=== PATIENT | male | born 1950 | race Caucasian/White ===

== ENCOUNTER 2016-12-17 04:30 | Emergency (ER) | payer BC ==
[~2016-12-17] VITALS: Ht 177.8 cm; Wt 77.4 kg
[~2016-12-17 04:30] MED LIST: ALPH100T PO; ASPI81TA21 PO; CARV12.5 PO; CO Q-10 PO; CRG25 PO; CRS5 PO; CYAN10005 PO; FISHOIL PO; FOLI1TAB7 PO; LEVO25TA5 PO; LEVO50TA6 PO; MELO7.5T5 PO; NZRCR TOP; ROPI0.5T15 PO; SULFACETAMIDE EXT; SULFUR EXT; ZOLP10TA6 PO
[2016-12-17 04:33] VITALS: TEMP 36.9; Ht 177.8 cm; Wt 77.4 kg
[2016-12-17] MEDS ORDERED: ONDANSETRON INJ 2 MG/ML 2 ML VIAL IV STA (04:51)
[2016-12-17] MEDS ORDERED: SODIUM CHLORIDE 0.9% 1000ML 1,000 ML IV STA (04:51)
[2016-12-17] MEDS ORDERED: HYDROmorphone INJ 1 MG/ML SYR IV STA ×2 (04:51→06:07)
--- NOTE | 2016-12-17 04:59 | EMERGENCY ROOM VISIT NOTE ---
History Report prepared by Peña: Richa Pimentel Under the Supervision of: Dr. Jamal Monreal M.D. First contact with patient: 04:45 Chief Complaint: BACK PAIN Stated Complaint: PAIN IN LOWER BACK AND STOMACH History of Present Illness The patient is a 66 year old male who presents to the Emergency Room with complaints of waxing and waning lower left back pain starting earlier today CATERING SOUS CHEF. The patient currently rates the pain as a 7/10 in severity. The patient states that he was traveling this weekend and when arriving home he had some vague abdominal pain and then radiated into his lower left to middle back. The patient describes the pain as a throbbing. He states that he has no history of kidney stones nor did he notice any blood in his urine. The patient states that this back pain is different than his back pain he had with his herniated discs. The patient states he is having some nausea but denies any vomiting, swelling or pain in the legs, SOB, or chest pain. Source of History: patient Onset: earlier today CATERING SOUS CHEF Position: back (lower left) Symptom Intensity: 7/10 Quality: other (throbbing) Timing: waxes/wanes Associated Symptoms: + nausea, No SOB, No chest pain, No vomiting Note: Patient denies any swelling or pain in the legs. Review of Systems See HPI for pertinent positives & negatives. A total of 10 systems reviewed and were otherwise negative. Past Medical & Surgical Medical Problems: (1) Anemia (2) HTN (hypertension) (3) Hypercholesterolemia (4) Hypothyroidism (5) Osteoarthritis (6) Pancytopenia Surgical Problems: (1) History of tonsillectomy and adenoidectomy (2) Status post Mohs surgery Family History No significant family history secondary to age Social History Smoking Status: Never Smoker Marital Status: Housing Status: lives with significant other Occupation Status: employed Current/Historical Medications Scheduled Alpha-Lipoic Acid (Thioctic Ac (Alpha-Lipoic Acid), 150 MG PO DAILY Aspirin Enteric Coated (Ecotrin Or Generic), 81 MG PO DAILY Carvedilol (Carvedilol), 25 MG PO QAM Carvedilol (Coreg), 12.5 MG PO QPM Coenzyme Q10 (Ubidecarenone) (Co Q-10), 1 CAP PO DAILY Cyanocobalamin (Vitamin B-12), 1,000 MCG PO DAILY Fish Oil (Hubbell-3), 1 CAP PO DAILY Folic Acid (Folvite), 1 TAB PO DAILY Ketoconazole (Ketoconazole), 1 APPLN TOP DAILY Levothyroxine Sodium (Levothyroxine Sodium), 1 TAB PO Q2D Levothyroxine Sodium (Levothyroxine Sodium), 1 TAB PO Q2D Meloxicam (Mobic), 7.5 MG PO DAILY Ondasetron Odt (Zofran Odt), 4-8 MG SL Q6H Ropinirole (Requip), 0.5 MG PO DAILY Rosuvastatin Calcium (Crestor), 1 TAB PO DAILY Sulfacetamide Sodium W/ Sulfur (Plexion Cleanser 9.8-4.8 %), 1 APPLN TOP DAILY Tamsulosin Hcl (Flomax), 0.4 MG PO DAILY Scheduled PRN Oxycodone Immediate Rel Tab (Roxicodone Ir), 1-3 TAB PO Q4H PRN for Severe Pain Zolpidem Tartrate (Zolpidem Tartrate), 1 TAB PO HS PRN for Insomnia Allergies Coded Allergies: No Known Allergies (Unverified , 12/17/16) Physical Exam Vital Signs Date Time Temp Pulse Resp B/P Pulse Ox O2 Delivery O2 Flow Rate FiO2 12/17/16 06:49 68 16 136/91 95 Room Air 12/17/16 06:05 66 20 149/95 97 Room Air 12/17/16 04:33 36.9 84 18 188/104 98 Room Air Physical Exam GENERAL: Patient is moderate distress, uncomfortable appearing. HEENT: No acute trauma, normocephalic atraumatic, mucous membranes moist, no nasal congestion, no scleral icterus. NECK: No stridor, no adenopathy, no meningismus, trachea is midline. LUNGS: No dyspnea. Clear to auscultation and equal bilaterally. No wheeze, no rhonchi. HEART: Regular rate and rhythm. No murmurs, rubs, gallops appreciated. ABDOMEN: Soft, nontender, bowel sounds positive, no masses appreciated, no peritonitis. BACK: No midline tenderness, no CVA tenderness EXTREMITIES: Normal motion all extremities, no cyanosis, no edema. NEUROLOGIC: Alert and oriented, no acute motor or sensory deficits, no focal weakness, cranial nerves grossly intact. SKIN: No rash, no jaundice, no diaphoresis. Medical Decision & Procedures ER Provider Diagnostic Interpretation: CT results as stated below per interpretation by me and the radiologist: Preliminary Results Only--- See Final Report for Complete Findings: CT ABDOMEN & PELVIS: Impression; 3 mm calculus within the proximal left ureter causing mild hydroureteronephrosis. There are additional non-obstructing calculi within the left kidney. Additional Findings: The visualized lower thorax demonstrates a small hiatal hernia. Subcentimeter low-density lesion within the right hepatic lobe (2-46), which is too small to characterize. The gallbladder, spleen, pancreas, and adrenal glads are unremarkable. Noninflamed colonic diverticulosis. The appendix is within normal limits. High-density material in the distal spermatic cords which may be postsurgical. No acute osseous abnormality. Radiologist: Angelo Shahid M.D. Study ready at 0530 and initial results transmitted at 0540 Laboratory Results 12/17/16 05:00 Red Blood Count 4.19, Mean Corpuscular Volume 93.1, Mean Corpuscular Hemoglobin 34.6, Mean Corpuscular Hemoglobin Concent 37.2, Mean Platelet Volume 9.0, Neutrophils (%) (Auto) 71.3, Lymphocytes (%) (Auto) 11.7, Monocytes (%) (Auto) 12.2, Eosinophils (%) (Auto) 3.9, Basophils (%) (Auto) 0.4, Neutrophils # (Auto ) 5.85, Lymphocytes # (Auto) 0.96, Monocytes # (Auto) 1.00, Eosinophils # (Auto ) 0.32, Basophils # (Auto) 0.03 12/17/16 05:00 Test 12/17/16 04:10 12/17/16 05:00 Urine Color YELLOW Urine Appearance CLEAR (CLEAR) Urine pH 7.5 (4.5-7.5) Urine Specific [place] 1.012 (1.000-1.030) Urine Protein NEG (NEG) Urine Glucose (UA) NEG (NEG) Urine Ketones NEG (NEG) Urine Occult Blood NEG (NEG) Urine Nitrite NEG (NEG) Urine Bilirubin NEG (NEG) Urine Urobilinogen NEG (NEG) Urine Leukocyte Esterase NEG (NEG) Urine WBC (Auto) 1-5 /hpf (0-5) Urine RBC (Auto) 0-4 /hpf (0-4) Urine Hyaline Casts (Auto) 0 /lpf (0-5) Urine Epithelial Cells (Auto) 5-10 /lpf (0-5) Urine Bacteria (Auto) NEG (NEG) White Blood Count 8.20 K/uL (4.8-10.8) Red Blood Count 4.19 M/uL (4.7-6.1) Hemoglobin 14.5 g/dL (14.0-18.0) Hematocrit 39.0 % (42-52) Mean Corpuscular Volume 93.1 fL (80-100) Mean Corpuscular Hemoglobin 34.6 pg (25-34) Mean Corpuscular Hemoglobin Concent 37.2 g/dl (32-36) Platelet Count 203 K/uL (130-400) Mean Platelet Volume 9.0 fL (7.4-10.4) Neutrophils (%) (Auto) 71.3 % Lymphocytes (%) (Auto) 11.7 % Monocytes (%) (Auto) 12.2 % Eosinophils (%) (Auto) 3.9 % Basophils (%) (Auto) 0.4 % Neutrophils # (Auto) 5.85 K/uL (1.4-6.5) Lymphocytes # (Auto) 0.96 K/uL (1.2-3.4) Monocytes # (Auto) 1.00 K/uL (0.11-0.59) Eosinophils # (Auto) 0.32 K/uL (0-0.5) Basophils # (Auto) 0.03 K/uL (0-0.2) RDW Standard Deviation 40.4 fL (36.4-46.3) RDW Coefficient of Variation 12.0 % (11.5-14.5) Immature Granulocyte % (Auto) 0.5 % Immature Granulocyte # (Auto) 0.04 K/uL (0.00-0.02) Anion Gap 6.0 mmol/L (3-11) Est Creatinine Clear Calc Drug Dose 80.7 ml/min Estimated GFR () 98.8 Estimated GFR (Non- 85.2 BUN/Creatinine Ratio 20.8 (10-20) Calcium Level 8.4 mg/dl (8.5-10.1) Total Bilirubin 0.5 mg/dl (0.2-1) Direct Bilirubin 0.1 mg/dl (0-0.2) Aspartate Amino Transf (AST/SGOT) 22 U/L (15-37) Alanine Aminotransferase (ALT/SGPT) 32 U/L (12-78) Alkaline Phosphatase 77 U/L (45-117) Total Protein 6.8 gm/dl (6.4-8.2) Albumin 3.8 gm/dl (3.4-5.0) Lipase 155 U/L (73-393) Laboratory results as reviewed by me. Medications Administered Medications (Trade) Dose Ordered Sig/Sarah Route Start Time Stop Time Status Last Admin Dose Admin Sodium Chloride (Nss 1000ml) 1,000 ml @ 999 mls/hr Q1H1M STAT IV 12/17/16 04:51 12/17/16 05:51 DC 12/17/16 05:08 999 MLS/HR Hydromorphone HCl (Dilaudid Inj) 1 mg NOW STAT IV 12/17/16 04:51 12/17/16 04:53 DC 12/17/16 05:08 1 MG Ondansetron HCl (Zofran Inj) 4 mg NOW STAT IV 12/17/16 04:51 12/17/16 04:53 DC 12/17/16 05:07 4 MG Tamsulosin HCl (Flomax Cap) 0.4 mg NOW ONCE PO 12/17/16 06:15 12/17/16 06:16 DC 12/17/16 06:11 0.4 MG Hydromorphone HCl (Dilaudid Inj) 1 mg NOW STAT IV 12/17/16 06:07 12/17/16 06:08 DC 12/17/16 06:11 1 MG Ondansetron HCl (ZOFRAN ODT 4MG Home Pack) 1 homepack UD ONCE PO 12/17/16 07:00 12/17/16 07:01 DC 12/17/16 06:54 1 HOMEPACK Oxycodone HCl (Roxicodone Immediate Rel 5MG Home Pack) 1 homepack UD ONCE PO 12/17/16 07:00 12/17/16 07:01 DC 12/17/16 06:54 1 HOMEPACK ED Course 0446: The patient was evaluated in room A2. A complete history and physical exam was performed. 0451: Ordered Zofran Inj 4 mg IV, Dilaudid Inj 1 mg IV, Sodium Chloride 1,000 ml @ 999 mls/hr. 0605: The patient states that he is having increased flank pain currently. 0607: Ordered Dilaudid Inj 1 mg IV. 0615: Ordered Flomax Cap 0.4mg PO. 0651: I reevaluated the patient and he is feeling much better and would like to go home. I discussed results and discharge instructions: He verbalized understanding and agreement. The patient is ready for discharge. Medical Decision Differential: Renal Colic, Pyelonephritis, Hydronephrosis, Appendicitis, Diverticulitis, Retroperitoneal Bleed/Infection, Aortic Pathology, MSK, Neurologic Pathology, amongst other pathologies entertained. 66 yr old male with left flank pain sudden onset this evening. Story concerning for renal colic. No blood in urine but felt that CT necessary given stone vs multiple other serious issues though it could be. Labs look good. CT with 3 mm proximal stone. Pain controlled with periodic narcotics and he is comfortable with outpatient treatment. will be with him. No fevers, nor infectious findings. No shob nor PE findings. Stable findings. Flomax, oxy, zofran discussed with patient and . RTED if worsening or other concerns. Follow up with PCP for further management. [place] Drug Monitoring Program Drug Monitoring Findings: Single controlled prescription several months ago. Impression Primary Impression: Left ureteral calculus Scribe Attestation The scribe's documentation has been prepared under my direction and personally reviewed by me in its entirety. I confirm that the note above accurately reflects all work, treatment, procedures, and medical decision making performed by me. Departure Information Dispostion Home / Self-Care Prescriptions Ondasetron Odt (ZOFRAN ODT) 4 Mg Tab 4-8 MG SL Q6H for Nausea, #20 TAB Prov: Jamal Monreal M.D. 12/17/16 Tamsulosin Hcl (FLOMAX) 0.4 Mg Cap 0.4 MG PO DAILY, #5 CAP Prov: Jamal Monreal M.D. 12/17/16 Oxycodone Immediate Rel Tab (ROXICODONE IR) 5 Mg Tab 1-3 TAB PO Q4H Y for Severe Pain, #24 TAB Prov: Jamal Monreal M.D. 12/17/16 Referrals Maycol Barroso M.D. (PCP) Forms HOME CARE DOCUMENTATION FORM, IMPORTANT VISIT INFORMATION Patient Instructions ED Stone Renal W Colic, My [facility] Additional Instructions You have received a narcotic pain medication prescription. These medications may cause drowsiness and should not be used with other sedative medications. Do not drive, drink alcohol, perform dangerous activities, nor make important decisions after taking these medications. skilled nursing use or inappropriate use may lead to addiction. Please follow up with your primary care provider in the next few days for repeat evaluation. Return if pain out of control or does not resolve after next 2-3 days.
[2016-12-17] MEDS ORDERED: OMEG10007 PO (05:13)
[2016-12-17] MEDS ORDERED: MELO15TA4 PO (05:14)
[2016-12-17] MEDS ORDERED: COEN150C PO (05:15)
[2016-12-17] MEDS ORDERED: NZRCR TOP (05:16)
[2016-12-17 05:18] LABS: BASO % 0.4 %; BASO ABS # 0.03 K/uL (0-0.2); COMPLETE YES; EOS % 3.9 %; IG% 0.5 %; LYMPH % 11.7 %; LYMPH ABS # 0.96 K/uL (1.2-3.4); MEAN CELL VOLUME 93.1 fL (80-100); MEAN CORPUSCULAR HEMOGLOBIN 34.6 pg (25-34); MEAN CORPUSCULAR HGB CONC 37.2 g/dl (32-36); MONO % 12.2 %; NEUT % 71.3 %; PLATELET COUNT 203 K/uL (130-400); RED BLOOD COUNT 4.19 M/uL (4.7-6.1)
[2016-12-17 05:20] LABS: URINE APPEARANCE CLEAR (CLEAR); URINE BILIRUBIN NEG (NEG); URINE COLOR YELLOW; URINE NITRITE NEG (NEG); URINE PH 7.5 (4.5-7.5); URINE SPECIFIC GRAVITY 1.012 (1.000-1.030); UROBILINOGEN NEG (NEG); ZZUR CULT IF INDIC CLEAN CATCH NO
[2016-12-17] MEDS ORDERED: SULF47LI TOP (05:21)
[2016-12-17 05:26] LABS: MANUAL MICROSCOPIC REQUIRED? NO; REVIEW REQ? NO
[2016-12-17 05:33] LABS: BUN/CREATININE RATIO 20.8 (10-20); CALCIUM 8.4 mg/dl (8.5-10.1); CREATININE 0.93 mg/dl (0.60-1.40); POTASSIUM 3.6 mmol/L (3.5-5.1)
[2016-12-17] MEDS ORDERED: TAMSULOSIN HCL 0.4 MG CAP PO ONE (06:15)
[2016-12-17 06:49] VITALS: BP 136/91; PULSE 68; O2SAT 95
[2016-12-17] MEDS ORDERED: TAMS0.4C38 PO (06:49)
[2016-12-17] MEDS ORDERED: ONDA4TAB10 SL (06:49)
[2016-12-17] MEDS ORDERED: OXYC1TAB3 PO (06:49)
[2016-12-17] MEDS ORDERED: OXYCODONE IR HOME PACK PO ONE (07:00)
[2016-12-17] MEDS ORDERED: ONDANSETRON HOME PACK 4MG OD TAB PO ONE (07:00)
--- NOTE | 2016-12-17 07:10 | DIAGNOSTIC IMAGING REPORT ---
ABDOMEN AND PELVIS CT WITHOUT CONTRAST CT DOSE: 827.31 mGy.cm HISTORY: Flank pain sudden onset left flank pain TECHNIQUE: Multiaxial CT images of the abdomen and pelvis were performed without the use of intravenous and oral contrast according to the standard department stone protocol. COMPARISON STUDY: None. FINDINGS: Lung bases are clear. Small fixed lateral hernia. Configuration of liver spleen and pancreas are unremarkable. Right kidney is negative for calcification or hydronephrosis. Perinephric infiltrative changes on the left with moderate left hydroureteronephrosis. There is a 4 mm nonobstructing calcification at the mid pole left kidney. There is a 3 mm obstructing calculus mid left ureter. Bowel pattern is nonobstructive. There are findings of chronic sigmoid diverticulosis. IMPRESSION: 1. Obstructing 3 mm calculus mid left ureter. 2. Moderate/significant left hydroureteronephrosis. 3. Left perinephric infiltrative change. 4. Nonobstructing left renal calcification. 5. Small hiatal hernia. 6. Chronic sigmoid diverticulosis. Electronically signed by: Toby Cruz M.D. 12/17/2016 7:09 AM Dictated Date/Time: 12/17/2016 7:06 AM
== END 2016-12-17 06:56 | disposition home or self-care (01) ==
LOC: C.EDB 04:31 → C.EDA 06:56
DX: N20.1 Calculus of ureter (principal); I10 Essential (primary) hypertension; E78.00 Pure hypercholesterolemia, unspecified; E03.9 Hypothyroidism, unspecified; Z79.82 Long term (current) use of aspirin

== ENCOUNTER 2021-06-29 12:51 | Inpatient (IN) ==
[2021-06-29 13:58] LABS: Basophils # (auto) 0.04 K/uL (0-0.2); Basophils % (auto) 0.7 %; Eosinophils # (auto) 0.35 K/uL (0-0.5); Eosinophils % (auto) 5.9 %; Hematocrit (blood only) 40.6 % (42-52); Hemoglobin 13.9 g/dL (14.0-18.0); Immature Granulocytes # (auto) 0.02 K/uL (0.00-0.02); Immature Granulocytes % (auto) 0.3 %; Lymphocytes # (auto) 1.21 K/uL (1.2-3.4); Lymphocytes % (auto) 20.4 %; Mean Corpuscular Hemoglobin 34.4 pg (25-34); Mean Corpuscular Hgb Conc 34.2 g/dL (32-36); Mean Corpuscular Volume 100.5 fL (80-100); Mean Platelet Volume 8.9 fL (7.4-10.4); Monocytes % (auto) 18.5 %; Neutrophils # (auto) 3.21 K/uL (1.4-6.5); Neutrophils % (auto) 54.2 %; Platelet Count 282 K/uL (130-400); RDW Coefficient of Variation 12.3 % (11.5-14.5); RDW Standard Deviation 44.9 fL (36.4-46.3); Red Blood Count 4.04 M/uL (4.7-6.1); White Blood Count 5.93 K/uL (4.8-10.8)
[2021-06-29] MEDS ORDERED: SODIUM CHLORIDE 0.9% 1000ML 1,000 ML IV SCH (14:00)
[2021-06-29 14:05] LABS: Partial Thromboplastin Time 27.4 Seconds (21.0-31.0)
[2021-06-29 14:11] LABS: Alanine Aminotransferase 21 U/L (12-78); Albumin Level 3.3 gm/dl (3.4-5.0); Aspartate Aminotransferase 16 U/L (15-37); BUN Creatinine Ratio 18.8 (10-20); Blood Urea Nitrogen 14 mg/dl (7-18); Calcium 8.7 mg/dl (8.5-10.1); Carbon Dioxide 29 mmol/L (21-32); Chloride 108 mmol/L (98-107); Est GFR (African American) 107.7 ml/min; Est GFR (Non-African American) 92.9 ml/min; Glucose 83 mg/dl (70-99); Magnesium 2.4 mg/dl (1.8-2.4); Potassium 4.4 mmol/L (3.5-5.1); Sodium 141 mmol/L (136-145)
[2021-06-29 14:16] LABS: Albumin Globulin Ratio 0.9 (0.9-2); Alkaline Phosphatase 66 U/L (45-117); Bilirubin,Total 0.6 mg/dl (0.2-1); Globulin 3.8 gm/dl (2.5-4.0); NT Pro B Type Natriuretic Pept 171 pg/ml (0-900); Total Protein 7.1 gm/dl (6.4-8.2); Troponin I < 0.015 ng/ml (0-0.045)
--- NOTE | 2021-06-29 14:25 | Emergency Department Note ---
Impression & Plan Pulmonary embolism and infarction, Cough with hemoptysis, Shortness of breath ED Provider Note NAME: MARIBETH LINDER AGE: 70 SEX: M ARRIVES VIA: Walk-In INFORMANT: Patient, ED PROVIDER(S): John oBb MD CHIEF COMPLAINT: Coughing blood, sob, CT with PE PLAN: Disposition: Admit MEDICAL DECISION MAKING: The patient is a pleasant 70-year-old gentleman with a past medical history of hypertension, hyperlipidemia, hypothyroidism, GERD, restless legs who presents emergency department referred by his PCP after having outpatient CT scan of his chest which had demonstrated pulmonary embolism. Patient reports the CT scan was ordered for evaluation of ongoing shortness of breath over the past week or more with associated cough and episodes of coughing up blood. Patient denies any prior history of DVT or PE. He denies any known family history thereof. He reports he recently did some traveling to [place] for work and the drive was approximately 6 hours or so and he did stop in between but admits that his shortness of breath had started before then. He denies any recent immobilization, hormone treatments, or long distance travel otherwise. He reports at this time while resting in the stretcher that he denies any shortness of breath but reports that he will feel short of breath with minimal exertion. He denies any known COVID-19 exposures. He reports having had his vaccination months ago. Patient denies any history of bleeding, GI or otherwise prior to his recent symptoms of hemoptysis. He is not on any anticoagulation. Review of the patient's outpatient CT scan from today demonstrates thrombus within the large branch of the right lower lobe pulmonary artery that extends into segmental and subsegmental branches. Additional segmental and subsegmental pulmonary emboli are seen within the branches of the left upper and left lower lobe pulmonary artery. Note is made of a 4 cm wedge-shaped subpleural consolidation at the right lung base that is suggestive of a pulmonary infarct. EKG without overt acute ischemia. WBC and platelets within normal limits. H/H 13.9/40.6 similar to prior range of values. Chemistry without metabolic acidosis. Electrolytes and LFTs are unremarkable. Troponin negative/undetectable. BNP within normal limits. COVID-19 PCR was negative. Given the patient does not appear to have any provoking factors for his pulmonary embolism hypercoagulable panel was ordered. Patient agrees with plan for admission for further evaluation and management. Case was discussed [place] [facility], who will evaluate the patient for admission. We agreed to initiate treatment with heparin at this time. Triage Nursing notes reviewed and agree them. Prior medical records reviewed Vital Signs: reviewed and remarkable for no significant abnormalities Differential diagnosis: Reactive airway disease, pneumonia, pneumothorax, COPD, CHF, infections, cardiac ischemia, pulmonary embolism, musculoskeletal, gastrointestinal, as well as other pathologies. ER treatment provided: See below. Diagnostics interpreted by me: ECG: Sinus bradycardia, 59 bpm, no ectopy, no overt ST elevation or depression, QTC 409, QRS 88. Cardiac Monitoring: An order for continuous cardiac monitoring was placed and demonstrated sinus bradycardia, 59 bpm, no ectopy. Laboratory studies: See below Imaging studies: See below. Consultation(s): [facility], who will evaluate the patient for admission. HPI: The patient is a pleasant 70-year-old gentleman with a past medical history of hypertension, hyperlipidemia, hypothyroidism, GERD, restless legs who presents emergency department referred by his PCP after having outpatient CT scan of his chest which had demonstrated pulmonary embolism. Patient reports the CT scan was ordered for evaluation of ongoing shortness of breath over the past week or more with associated cough and episodes of coughing up blood. Patient denies any prior history of DVT or PE. He denies any known family history thereof. He reports he recently did some traveling to [place] for work and the drive was approximately 6 hours or so and he did stop in between but admits that his shortness of breath had started before then. He denies any recent immobilization, hormone treatments, or long distance travel otherwise. He reports at this time while resting in the stretcher that he denies any shortness of breath but reports that he will feel short of breath with minimal exertion. He denies any known COVID-19 exposures. He reports having had his vaccination months ago. Patient denies any history of bleeding, GI or otherwise prior to his recent symptoms of hemoptysis. He is not on any anticoagulation. Review of the patient's outpatient CT scan from today demonstrates thrombus within the large branch of the right lower lobe pulmonary artery that extends into segmental and subsegmental branches. Additional segmental and subsegmental pulmonary emboli are seen within the branches of the left upper and left lower lobe pulmonary artery. Note is made of a 4 cm wedge-shaped subpleural consolidation at the right lung base that is suggestive of a pulmonary infarct. ROS: See above HPI for pertinent positives & negatives. A total of 10 systems reviewed and were otherwise negative. PAST MEDICAL HISTORY:See Below PAST SURGICAL HISTORY:See Below FAMILY HISTORY:See Below SOCIAL HISTORY:See Below HOME MEDICATIONS:See Below ALLERGIES:See Below VITALS:See Below PHYSICAL EXAMINATION: GENERAL: Awake, alert, fatigued but relatively well-appearing, in no distress HENT: Normocephalic, atraumatic. Oropharynx with dry mucous membranes and otherwise unremarkable. EYES: Normal conjunctiva. Sclera non-icteric. NECK: Supple. No nuchal rigidity. FROM. No JVD. RESPIRATORY: Clear to auscultation. CARDIAC: Regular rate, normal rhythm. Extremities warm and well perfused. Pulses equal. ABDOMEN: Soft, non-distended. No tenderness to palpation. No rebound or guarding. No masses. RECTAL: Deferred. MUSCULOSKELETAL: Chest examination reveals no tenderness. The back is symmetrical on inspection without obvious abnormality. There is no CVA tenderness to palpation. No joint edema. LOWER EXTREMITIES: Calves are equal size bilaterally and non-tender. No edema. No discoloration. NEURO: Normal sensorium. No sensory or motor deficits noted. SKIN: No rash or jaundice noted. ED COURSE: Critical Care: I have personally spent greater than 45 minutes of critical care time in the direct management of this patient. This includes bedside care, interpretation of diagnostic studies, and testing, discussion with consultants, patient, and family members, and other required patient management activities. This 45 minutes is in excess of all separately billable procedures. John Bob MD Past Med/Surg History Medical History (Updated 06/29/21 @ 21:52 by John Bob MD) Anemia Back pain Benign localized prostatic hyperplasia with lower urinary tract symptoms (LUTS) Generalized osteoarthritis HTN (hypertension) Hyperlipidemia Hypothyroidism Insomnia Left lumbar radiculopathy Localized primary osteoarthritis of lower leg Nephrolithiasis Osteoarthritis Pancytopenia Restless legs syndrome Rosacea Thrombocytopenia Surgical History History of adenoidectomy History of Mohs micrographic surgery for skin cancer History of nasal septoplasty History of tonsillectomy Family History Unknown Hyperlipidemia Father Dementia Coronary heart disease Myocardial infarction Mother Hypertension Breast cancer Stroke Denies family history of Ovarian cancer Prostate cancer Diabetes Lung cancer Colorectal cancer Social History Smoking Status: Never smoker Second Hand Exposure: No; Do You Dip or Chew Tobacco: No; Hx Alcohol Use: Yes Alcohol type: beer, wine and hard liquor Alcohol Intake Frequency: 4 or More x per/Week Hx Substance Use: No Preferred Language: Welsh Communication Ability: Effective Visual Impairment: Limited Hearing Ability: Normal Production Manager Required: No Beliefs That Will Affect Care: None marital status: Current Living Situation: Spouse Current Living Situation Comment: in a house with current occupational status: 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 How many Children do You have: 3 Other Information That Helps Us Care for You: No Feels Safe at Home: Yes Safety Concerns: Feels Safe At This Time Childhood Exposure to Second-Hand Smoke: No caffeine: Yes Dental Care, Regularly: Yes Physical Activity Frequency: Daily Seatbelt Use: always Sunscreen Use: Yes Assistive Devices: None Allergies Allergies Allergy/AdvReac Type Severity Reaction Status Date / Time No Known Allergies Allergy Verified 06/29/21 14:38 Home Meds Home Medications Medication Instructions Recorded Confirmed multivitamin (Daily Multi-Vitamin) 1 tab PO DAILY 04/29/19 06/29/21 turmeric 400 mg capsule 400 mg PO DAILY cap 05/12/19 06/29/21 diclofenac sodium 1 % topical gel 4 g TOPICAL QID PRN #1 gm 10/16/20 06/29/21 hydrocortisone-acetic acid 1 %-2 % 3 drp OTIC (EAR) TID PRN ml 10/16/20 06/29/21 ear drops ropinirole 0.5 mg tablet 0.5 mg PO HS PRN tab 10/16/20 06/29/21 doxycycline hyclate 50 mg capsule 50 mg PO DAILY PRN 04/05/21 06/29/21 levothyroxine 25 mcg tablet 25 mcg PO Q2D tab 04/05/21 06/29/21 omeprazole 20 mg capsule,delayed 20 mg PO DAILY PRN cap 06/29/21 06/29/21 release Previous Rx's Medication Instructions Recorded zolpidem 10 mg tablet 10 mg PO HS PRN #90 tab 05/17/19 meloxicam 15 mg tablet 7.5 mg PO DAILY #45 tab 09/15/20 tadalafil 20 mg tablet (Cialis) 10 - 20 mg PO DAILY PRN #10 tab 10/16/20 carvedilol 12.5 mg tablet 25 mg PO BID #360 tab 11/06/20 rosuvastatin 5 mg tablet 5 mg PO DAILY #90 tab 03/26/21 calcium-vitamins B6-B12-FA tablet 1 tab PO DAILY #30 tab 04/20/21 cholecalciferol (vitamin D3) 50 50 mcg PO DAILY #30 cap 04/20/21 mcg (2,000 unit) capsule levothyroxine 50 mcg tablet 50 mcg PO Q2D #45 tab 04/20/21 Results & Data (ED) Vital Signs Vital Signs - 24 hr 06/29/21 13:01 06/29/21 13:45 06/29/21 14:00 Temperature 36.7 C Temperature Source Temporal Artery Scan Pulse Rate 66 64 63 Respiratory Rate 18 17 19 Respiratory Depth Normal Blood Pressure 137/89 152/92 H 155/95 H Blood Pressure Mean 105 112 115 Pulse Oximetry 98 96 Sepsis Recent Fever Within 48 Hours No Sepsis New/Unexplained Change in Mental Status No Sepsis Action Taken by Nursing No Action Required 06/29/21 14:30 06/29/21 15:00 06/29/21 15:30 Temperature Temperature Source Pulse Rate 65 64 65 Respiratory Rate 14 12 22 Respiratory Depth Blood Pressure 159/98 H 153/93 H 170/93 H Blood Pressure Mean 118 113 118 Pulse Oximetry 95 Sepsis Recent Fever Within 48 Hours Sepsis New/Unexplained Change in Mental Status Sepsis Action Taken by Nursing Laboratory Data Attestation: I reviewed the patient's lab results. Result diagrams: 06/29/21 13:45 06/29/21 13:44 Lab Results 06/29/21 06/29/21 06/29/21 Range/Units 13:44 13:44 13:45 WBC 5.93 (4.8-10.8) K/uL RBC 4.04 L (4.7-6.1) M/uL Hgb 13.9 L (14.0-18.0) g/dL Hct 40.6 L (42-52) % MCV 100.5 H (80-100) fL MCH 34.4 H (25-34) pg MCHC 34.2 (32-36) g/dL RDW Std Deviation 44.9 (36.4-46.3) fL RDW Coeff of Vipul 12.3 (11.5-14.5) % Plt Count 282 (130-400) K/uL MPV 8.9 (7.4-10.4) fL Immature Gran % (Auto) 0.3 % Neut % (Auto) 54.2 % Lymph % (Auto) 20.4 % [place] % (Auto) 18.5 % Eos % (Auto) 5.9 % Baso % (Auto) 0.7 % Neut # (Auto) 3.21 (1.4-6.5) K/uL Lymph # (Auto) 1.21 (1.2-3.4) K/uL [place] # (Auto) 1.10 H (0.11-0.59) K/uL Eos # (Auto) 0.35 (0-0.5) K/uL Baso # (Auto) 0.04 (0-0.2) K/uL Immature Gran # (Auto) 0.02 (0.00-0.02) K/uL PT 10.0 (9.0-12.0) Seconds INR 1.0 (0.9-1.1) APTT 27.4 (21.0-31.0) Seconds PTT Ratio 1.0 Sodium 141 (136-145) mmol/L Potassium 4.4 (3.5-5.1) mmol/L Chloride 108 H (98-107) mmol/L Carbon Dioxide 29 (21-32) mmol/L Anion Gap 4.0 (3-11) BUN 14 (7-18) mg/dl Creatinine 0.75 (0.6-1.4) mg/dl Est Cr Clr Drug Dosing Not Reportable Est GFR ( Amer) 107.7 ml/min Est GFR (Non-Af Amer) 92.9 ml/min BUN/Creatinine Ratio 18.8 (10-20) Glucose 83 (70-99) mg/dl Calcium 8.7 (8.5-10.1) mg/dl Magnesium 2.4 (1.8-2.4) mg/dl Total Bilirubin 0.6 (0.2-1) mg/dl AST 16 (15-37) U/L ALT 21 (12-78) U/L Alkaline Phosphatase 66 (45-117) U/L Troponin I < 0.015 (0-0.045) ng/ml NT-Pro-B Natriuret Pep 171 (0-900) pg/ml Total Protein 7.1 (6.4-8.2) gm/dl Albumin 3.3 L (3.4-5.0) gm/dl Globulin 3.8 (2.5-4.0) gm/dl Albumin/Globulin Ratio 0.9 (0.9-2) COVID-19 Eval Order SARS-CoV-2 (PCR) (Negative) 06/29/21 06/29/21 Range/Units 14:19 14:19 WBC (4.8-10.8) K/uL RBC (4.7-6.1) M/uL Hgb (14.0-18.0) g/dL Hct (42-52) % MCV (80-100) fL MCH (25-34) pg MCHC (32-36) g/dL RDW Std Deviation (36.4-46.3) fL RDW Coeff of Vipul (11.5-14.5) % Plt Count (130-400) K/uL MPV (7.4-10.4) fL Immature Gran % (Auto) % Neut % (Auto) % Lymph % (Auto) % [place] % (Auto) % Eos % (Auto) % Baso % (Auto) % Neut # (Auto) (1.4-6.5) K/uL Lymph # (Auto) (1.2-3.4) K/uL [place] # (Auto) (0.11-0.59) K/uL Eos # (Auto) (0-0.5) K/uL Baso # (Auto) (0-0.2) K/uL Immature Gran # (Auto) (0.00-0.02) K/uL PT (9.0-12.0) Seconds INR (0.9-1.1) APTT (21.0-31.0) Seconds PTT Ratio Sodium (136-145) mmol/L Potassium (3.5-5.1) mmol/L Chloride (98-107) mmol/L Carbon Dioxide (21-32) mmol/L Anion Gap (3-11) BUN (7-18) mg/dl Creatinine (0.6-1.4) mg/dl Est Cr Clr Drug Dosing Est GFR ( Amer) ml/min Est GFR (Non-Af Amer) ml/min BUN/Creatinine Ratio (10-20) Glucose (70-99) mg/dl Calcium (8.5-10.1) mg/dl Magnesium (1.8-2.4) mg/dl Total Bilirubin (0.2-1) mg/dl AST (15-37) U/L ALT (12-78) U/L Alkaline Phosphatase (45-117) U/L Troponin I (0-0.045) ng/ml NT-Pro-B Natriuret Pep (0-900) pg/ml Total Protein (6.4-8.2) gm/dl Albumin (3.4-5.0) gm/dl Globulin (2.5-4.0) gm/dl Albumin/Globulin Ratio (0.9-2) COVID-19 Eval Order Covid19 at [facility] SARS-CoV-2 (PCR) NEGATIVE (Negative) Administered Medications Acetaminophen (Acetaminophen 325 Mg Tab) 650 mg PO Q4H PRN PRN Reason: Pain or Fever Stop: 07/29/21 16:58 Last Admin: 06/29/21 19:55 Dose: 650 mg Documented by: [id number] Carvedilol (Carvedilol 25 Mg Tab) 25 mg PO BID [facility] Stop: 07/29/21 20:59 Last Admin: 06/29/21 21:15 Dose: 25 mg Documented by: [id number] Hydralazine HCl (Hydralazine Hcl 20 Mg/Ml Vial) 5 mg IV Q8H PRN PRN Reason: SBP GREATER THAN 165 Stop: 07/29/21 17:29 Last Admin: 06/29/21 17:45 Dose: 5 mg Documented by: [id number] Heparin Sodium/Dextrose (Heparin Sodium/Dextrose) 25,000 units in 500 mls @ 27 mls/hr IV .[id number] [facility]; Protocol Stop: 07/29/21 15:29 Last Titration: 06/29/21 19:06 Dose: 1,350 units/hr, 27 mls/hr Documented by: [id number] Cosigned by: [id number] Admin: 06/29/21 15:29 Dose: 1,350 units/hr, 27 mls/hr Documented by: [id number] Cosigned by: [id number] Ropinirole HCl (Ropinirole Hcl 0.25 Mg Tablet) 0.5 mg PO HS PRN PRN Reason: restless leg(s) Stop: 07/29/21 16:58 Last Admin: 06/29/21 21:18 Dose: 0.5 mg Documented by: [id number] Zolpidem Tartrate (Zolpidem Tartrate 10 Mg Tab) 10 mg PO HS PRN PRN Reason: sleep Stop: 07/29/21 16:58 Last Admin: 06/29/21 21:18 Dose: 10 mg Documented by: [id number] Discontinued Medications Heparin Sodium (Porcine) (Heparin Sod (Porcine) 1000 Unit/Ml) 1 units IV NOW ONE Stop: 06/29/21 15:17 Last Admin: 06/29/21 15:28 Dose: 6,000 units Documented by: [id number] Cosigned by: [id number] Heparin Sodium/Dextrose (Heparin Iv Adult Wt-Based Standard With Bolus Protocol) 1 ea IV NOW STA; Protocol Stop: 06/29/21 15:02 Last Admin: 06/29/21 15:30 Dose: Not Given Documented by: [id number] Sodium Chloride (Nss 1000ml) 1,000 mls @ 125 mls/hr IV .Q8H [facility] Stop: 07/29/21 13:59 Last Infusion: 06/29/21 17:17 Dose: 0 mls/hr Documented by: [id number] Admin: 06/29/21 14:06 Dose: 125 mls/hr Documented by: [id number] Imaging Data Radiologist's Impression: Outpatient CT 06/29/2021: CT ANGIOGRAM OF THE CHEST CLINICAL HISTORY: Dyspnea. COMPARISON STUDY: Chest x-ray dated 04/22/2012. TECHNIQUE: Following the IV administration of 120 cc of Optiray 320, CT angiogram of the chest was performed from the upper abdomen to the thoracic inlet utilizing the pulmonary embolus protocol. Images are reviewed in the ax ial, sagittal, and coronal planes. 3-D MIPS images are created and assessed. IV contrast was administered without complication. A dose lowering technique was utilized adhering to the principles of ALARA. CT DOSE: 316.09 mGy.cm FINDINGS: Thyroid: Mildly atrophic and heterogeneous. Thoracic aorta: The thoracic aorta is normal in caliber and demonstrates bovine variant arch anatomy. No dissection is seen. Pulmonary vasculature: The pulmonary trunk is normal in caliber. There is a filling defect at the bifurcation of the right middle lobe pulmonary artery consistent with pulmonary embolus. There is thrombus within a large branch of the right lower lobe pulmonary artery consistent with pulmonary embolus. This extends into segmental and subsegmental branches. Segmental and subsegmental pul monary emboli are seen within branches of the left upper and left lower lobe pulmonary artery. Heart: The heart is normal in size and without pericardial effusion. Lungs and pleural spaces: A 4 cm focus of wedge-shaped subpleural consolidation at the right lung base is typical for a pulmonary infarct. There is trace associated right pleural effusion. The lung parenchyma is otherwise clear noting scattered calcified granulomas. Dependent atelectasis is seen at both lung bases. The trachea and central airways are patent. Mediastinum: There is no mediastinal lymphadenopathy. Juliana: Clear. Axillae: There is no axillary lymphadenopathy. Upper abdomen: There is a small hiatal hernia. Small hepatic cysts measure up to 13 mm. Skeletal structures: The skeletal structures are osteopenic. Degenerative change is noted in the shoulders and thoracic spine. No lytic or blastic bony lesions are seen. IMPRESSION: 1. Large bilateral pulmonary emboli as above. 2. There is a pulmonary infarct at the right lung base and trace right pleural effusion. ACT 112: Negative or not required by law. Electronically signed by: Macho Kim M.D. 06/29/2021 12:38 PM Discharge Plan Visit Data Chief Complaint: Referred by Doctor Stated Complaint: REFERRED BY CT, FOUND BLOOD CLOT IN LUNG ED Provider: John Bob Discharge Problem: Pulmonary embolism and infarction, Cough with hemoptysis, Shortness of breath Patient Disposition: Admitted As Inpatient Discharge Instructions Interventions: ED Discharge Assessment Last Done: 06/29/21 16:24
[2021-06-29] MEDS ORDERED: Heparin IV Adult Wt-Based Standard WITH Bolus Protocol IV STA (15:01)
[2021-06-29] MEDS ORDERED: HEPARIN SOD (PORCINE) 1000 UNIT/ML IV ONE (15:16)
[2021-06-29] MEDS: HEPARIN SODIUM/DEXTROSE 25,000 UNITS/500 ML BAG IV SCH (15:29)
--- NOTE | 2021-06-29 16:04 | History & Physical Report ---
Date of Service June 29, 2021 Assessment & Plan (1) Muscle cramp, nocturnal: Plan: 70 y/o m Hx RLS, GERD, HTN, HLD, hypothyroid. Pt developed exertional dyspnea starting 2 weeks ago. Over the past week, he has developed L lateral pleuritic CP and then a cough with occasional hemoptysis. He was instructed to attend the ER by his PCP. A CT of the chest demonstrated large bilateral pulmonary emboli and a pulmonary infarct at the right lung base. Labs are notable for hypoproteinemia and mild anemia. The pt has not exhibited tachypnea, tachycardia or hypoxia. The pt states that he has been having cramps in his calves for one month. He DCd his statin initially which he states did not help. He then restarted the statin and DCd chlorthalidone which did help. 1) BL PEs with R pulmonary infarct and hemoptysis - the pt is placed on IV Heparin to determine if hemoptysis increases with anticoagulation. He is assigned to telemetry on an 02 protocol. He is remarkably stable and asymptomatic at rest considering his clot burden. As he was c/o leg cramps, a lower extrem Doppler is ordered. A full hypercoag panel was ordred by the ER. I believe considering his age group tht an underlying malignancy is more likely. We will order a CEA and PSA to start. Additional workup can be pursued in the outpt setting. 2) HTN - cont Carvedilol 3) HLD - cont Crestor 4) Hypothyroidism - cont Synthroid 5) Regarding anemia and low protein - this may support a diagnosis of malignancy - we will trend his Hb for now Full code - full-dose anticoagulation Total time for this admit including review of labs, meds, imaging, records - discussion with pt and ER attending - 38 min (2) Pulmonary emboli: (3) Hyperlipidemia: (4) HTN (hypertension): (5) Hypothyroidism: History of Present Illness Chief Complaint: Hemoptysis Primary Care Provider: Maycol Barroso MD 70 y/o m Hx RLS, GERD, HTN, HLD, hypothyroid. Pt developed exertional dyspnea starting 2 weeks ago. Over the past week, he has developed L lateral pleuritic CP and then a cough with occasional hemoptysis. He was instructed to attend the ER by his PCP. A CT of the chest demonstrated large bilateral pulmonary emboli and a pulmonary infarct at the right lung base. Labs are notable for hypoproteinemia and mild anemia. The pt has not exhibited tachypnea, tachycardia or hypoxia. The pt states that he has been having cramps in his calves for one month. He DCd his statin initially which he states did not help. He then restarted the statin and DCd chlorthalidone which did help. PMH: 1) HTN 2) HLD 3) Hypothyroid 4) GERD 5) RLS Surgical: 1) Tonsillectomy 2) Mohs Social: Does not smoke. Drinks socially. 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 Family: Father - [place], dementia Mother - CVA Allergies Allergy/AdvReac Type Severity Reaction Status Date / Time No Known Allergies Allergy Verified 06/29/21 14:38 Home Medications Medication Instructions Recorded Confirmed Type multivitamin (Daily Multi-Vitamin) 1 tab PO DAILY 04/29/19 06/29/21 History turmeric 400 mg capsule 400 mg PO DAILY cap 05/12/19 06/29/21 History zolpidem 10 mg tablet 10 mg PO HS PRN #90 tab 05/17/19 06/29/21 Rx meloxicam 15 mg tablet 7.5 mg PO DAILY #45 tab 09/15/20 06/29/21 Rx diclofenac sodium 1 % topical gel 4 g TOPICAL QID PRN #1 gm 10/16/20 06/29/21 History hydrocortisone-acetic acid 1 %-2 % 3 drp OTIC (EAR) TID PRN ml 10/16/20 06/29/21 History ear drops ropinirole 0.5 mg tablet 0.5 mg PO HS PRN tab 10/16/20 06/29/21 History tadalafil 20 mg tablet (Cialis) 10 - 20 mg PO DAILY PRN #10 tab 10/16/20 06/29/21 Rx carvedilol 12.5 mg tablet 25 mg PO BID #360 tab 11/06/20 06/29/21 Rx rosuvastatin 5 mg tablet 5 mg PO DAILY #90 tab 03/26/21 06/29/21 Rx doxycycline hyclate 50 mg capsule 50 mg PO DAILY PRN 04/05/21 06/29/21 History levothyroxine 25 mcg tablet 25 mcg PO Q2D tab 04/05/21 06/29/21 History calcium-vitamins B6-B12-FA tablet 1 tab PO DAILY #30 tab 04/20/21 06/29/21 Rx cholecalciferol (vitamin D3) 50 50 mcg PO DAILY #30 cap 04/20/21 06/29/21 Rx mcg (2,000 unit) capsule levothyroxine 50 mcg tablet 50 mcg PO Q2D #45 tab 04/20/21 06/29/21 Rx omeprazole 20 mg capsule,delayed 20 mg PO DAILY PRN cap 06/29/21 06/29/21 History release Past Med/Surg History Medical History (Updated 06/29/21 @ 16:44 by Kevin Irizarry MD) Anemia Back pain Benign localized prostatic hyperplasia with lower urinary tract symptoms (LUTS) Generalized osteoarthritis HTN (hypertension) Hyperlipidemia Hypothyroidism Insomnia Left lumbar radiculopathy Localized primary osteoarthritis of lower leg Nephrolithiasis Osteoarthritis Pancytopenia Restless legs syndrome Rosacea Thrombocytopenia Surgical History History of adenoidectomy History of Mohs micrographic surgery for skin cancer History of nasal septoplasty History of tonsillectomy Family History Unknown Hyperlipidemia Father Dementia Coronary heart disease Myocardial infarction Mother Hypertension Breast cancer Stroke Denies family history of Ovarian cancer Prostate cancer Diabetes Lung cancer Colorectal cancer Social History Smoking Status: Never smoker Second Hand Exposure: No; Do You Dip or Chew Tobacco: No; Hx Alcohol Use: Yes Alcohol type: beer, wine and hard liquor Alcohol Intake Frequency: 4 or More x per/Week Hx Substance Use: No Preferred Language: Mauritian Communication Ability: Effective Visual Impairment: Limited Hearing Ability: Normal Echometer Engineer Required: No Beliefs That Will Affect Care: None marital status: Current Living Situation: Spouse Current Living Situation Comment: in a house with current occupational status: 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 How many Children do You have: 3 Other Information That Helps Us Care for You: No Feels Safe at Home: Yes Safety Concerns: Feels Safe At This Time Childhood Exposure to Second-Hand Smoke: No caffeine: Yes Dental Care, Regularly: Yes Physical Activity Frequency: Daily Seatbelt Use: always Sunscreen Use: Yes Assistive Devices: None Review of Systems Review of Systems: Gen: Denies fevers, night sweats, rigors, fatigue, malaise, weight loss/gain ENT: Denies congestion, throat pain, hearing loss Eyes: Denies acute visual changes CV: Denies CP, palpitations Pulmonary: Exertional dyspnea and hemoptysis - L pleuritic CP GI: Denies N/V, diarrhea, constipation Neuro: Denies acute or unilateral weakness, acute gait impairment, headache or acute visual changes Musculoskeletal: Denies joint pain, inflammation - has had cramping in calves. Endocrine: Denies polydipsia, polyuria Skin: Denies acute rashes or ulcers Physical Exam Physical Exam: General: AAO x 3, no distress ENT: No erythema or exudates, no thrush Eyes: MARYCRUZ, EOMI Head and neck: Normocephalic, atraumatic, No JVD, neck is supple. Chest/heart: Nontender, S1,2, RRR, no murmurs, no gallops Lungs: CTAB, no wheezing or crackles Abdomen: Nontender, nondistended, BS+ Neuro: AAO x 3, speech is clear, no unilateral weakness or loss of sensation, coordination intact Musculoskeletal: No joint inflammation, muscle tenderness, FROM Skin: No acute rashes or ulcers Extremities: No clubbing, cyanosis, edema Results & Data Results & Data ([facility]) Vital Signs (Past 12 Hours) Vital Signs Temp Pulse Resp BP Pulse Ox 06/29/21 15:30 65 22 170/93 H 06/29/21 15:00 64 12 153/93 H 06/29/21 14:30 65 14 159/98 H 95 06/29/21 14:00 63 19 155/95 H 96 06/29/21 13:45 64 17 152/92 H 06/29/21 13:01 98.1 F 66 18 137/[address] abdomen: 1. Large bilateral pulmonary emboli as above. 2. There is a pulmonary infarct at the right lung base and trace right pleural effusion. Code Status & VTE Plan VTE Prophylaxis Plan VTE Prophylaxis will be ordered: Yes PG Care Time/CCT Total # of Minutes Spent Total Time Spent with Patient: Total time spent is greater than 50% in coordination of care (as documented) at patient's floor/unit and/or counseling patient: Coding Level of Care Code 00210 Initial Inpt Care Lvl 3 Diagnoses Muscle cramp, nocturnal R25.2 Pulmonary emboli I26.99 Hyperlipidemia E78.2 Hyperlipidemia type: mixed hyperlipidemia HTN (hypertension) I10 Hypertension type: essential hypertension Hypothyroidism E03.9 (1) Hyperlipidemia Hyperlipidemia type: mixed hyperlipidemia Qualified Code(s): E78.2 - Mixed hyperlipidemia (2) HTN (hypertension) Hypertension type: essential hypertension Qualified Code(s): I10 - Essential (primary) hypertension
[2021-06-29] MEDS ORDERED: PNEUMOCOCCAL POLYSACCHARIDES 25 MCG/0.5 ML VIAL/SYR IM ONE (16:55)
[2021-06-29] MEDS ORDERED: ACETAMINOPHEN 325 MG TAB PO PRN (16:59)
[2021-06-29] MEDS ORDERED: PANTOprazole 40 MG TAB PO PRN (17:02)
[2021-06-29] MEDS ORDERED: hydrALAZINE HCL 20 MG/ML VIAL IV PRN (17:27)
--- NOTE | 2021-06-29 19:44 | Ultrasound Report ---
BILATERAL LOWER EXTREMITY VENOUS DOPPLER HISTORY: Pulmonary emboli. Assess for DVT. COMPARISON STUDY: None. FINDINGS: There is normal compressibility, flow, and augmentation within the left lower extremity ivania p venous system. There is occlusive DVT within the mid popliteal vein extending into the posterior ti bial veins and peroneal veins. The remaining right lower extremity deep venous structures are patent. IMPRESSION: 1. Right lower extremity DVT as described above. 2. No evidence for a left lower extremity DVT. ACT 112: Negative or not required by law. Electronically signed by: Justyn Baum M.D. 06/29/2021 7:43 PM
[2021-06-29] MEDS: carvediloL 25 MG TAB PO SCH (21:15)
[2021-06-29] MEDS: ZOLPIDEM TARTRATE 10 MG TAB PO PRN (21:18)
[2021-06-29] MEDS: rOPINIRole HCL 0.25 MG TABLET PO PRN (21:18)
[2021-06-29 21:43] LABS: Partial Thromboplastin Ratio 2.7
[2021-06-29 22:00] LABS: Partial Thromboplastin Time 71.2 Seconds (21.0-31.0)
[2021-06-30 04:43] LABS: Partial Thromboplastin Ratio 3.7
[2021-06-30 04:46] LABS: BUN Creatinine Ratio 20.8 (10-20); Calcium 8.3 mg/dl (8.5-10.1); Creatinine Clr Calc Pharmacy 92.9 ml/min; Est GFR (African American) 108.3 ml/min; Est GFR (Non-African American) 93.5 ml/min; Magnesium 2.2 mg/dl (1.8-2.4); Potassium 3.6 mmol/L (3.5-5.1)
[2021-06-30 04:49] LABS: Hematocrit (blood only) 33.9 % (42-52); Hemoglobin 11.6 g/dL (14.0-18.0); Mean Corpuscular Hemoglobin 33.8 pg (25-34); Mean Corpuscular Hgb Conc 34.2 g/dL (32-36); Mean Corpuscular Volume 98.8 fL (80-100); Mean Platelet Volume 8.7 fL (7.4-10.4); Platelet Count 106 K/uL (130-400); RDW Coefficient of Variation 12.1 % (11.5-14.5); RDW Standard Deviation 43.4 fL (36.4-46.3); Red Blood Count 3.43 M/uL (4.7-6.1); White Blood Count 4.76 K/uL (4.8-10.8)
[2021-06-30 04:50] LABS: Basophils # (auto) 0.03 K/uL (0-0.2); Basophils % (auto) 0.6 %; Eosinophils # (auto) 0.18 K/uL (0-0.5); Eosinophils % (auto) 3.8 %; Immature Granulocytes # (auto) 0.01 K/uL (0.00-0.02); Immature Granulocytes % (auto) 0.2 %; Monocytes # (auto) 0.82 K/uL (0.11-0.59); Monocytes % (auto) 17.2 %; Neutrophils # (auto) 2.72 K/uL (1.4-6.5); Neutrophils % (auto) 57.2 %; Platelet Estimate Decreased (Normal); RBC Morphology Unremarkable
[2021-06-30 04:52] LABS: Partial Thromboplastin Time 96.5 Seconds (21.0-31.0)
[2021-06-30 05:00] LABS: Prostate Specific Antigen 0.823 ng/ml (0-4)
[2021-06-30] MEDS ORDERED: LEVOTHYROXINE SODIUM 50 MCG TABLET PO SCH (06:30)
--- NOTE | 2021-06-30 07:41 | Electrocardiogram Report ---
Test Reason : Blood Pressure : / mmHG Vent. Rate : 059 BPM Atrial Rate : 059 BPM P-R Int : 144 ms QRS Dur : 088 ms QT Int : 414 ms P-R-T Axes : 032 -13 001 degrees QTc Int : 409 ms Sinus bradycardia Otherwise normal ECG When compared with ECG of 22-APR-2012 22:40, No significant change was found Confirmed by Jameel Marcus ([id number]) on 06/30/2021 7:40:35 AM Referred By: Confirmed By:Jameel Marcus
[2021-06-30] MEDS: ROSUVASTATIN CALCIUM 5 MG TAB PO SCH (08:13)
[2021-06-30] MEDS: carvediloL 25 MG TAB PO SCH ×2 (08:13→20:42)
[2021-06-30] MEDS: HEPARIN SODIUM/DEXTROSE 25,000 UNITS/500 ML BAG IV SCH (11:59)
[2021-06-30 12:27] LABS: Partial Thromboplastin Ratio 2.5
[2021-06-30 12:33] LABS: Partial Thromboplastin Time 65.2 Seconds (21.0-31.0)
--- NOTE | 2021-06-30 18:34 | Hospitalist Progress Note ---
Date of Service June 30, 2021 Assessment & Plan (1) Muscle cramp, nocturnal: Plan: 70 y/o m Hx RLS, GERD, HTN, HLD, hypothyroid. Pt developed exertional dyspnea starting 2 weeks ago. Over the past week, he has developed L lateral pleuritic CP and then a cough with occasional hemoptysis. He was instructed to attend the ER by his PCP. A CT of the chest demonstrated large bilateral pulmonary emboli and a pulmonary infarct at the right lung base. Labs are notable for hypoproteinemia and mild anemia. The pt has not exhibited tachypnea, tachycardia or hypoxia. The pt states that he has been having cramps in his calves for one month. He DCd his statin initially which he states did not help. He then restarted the statin and DCd chlorthalidone which did help. 1) BL PEs with R pulmonary infarct and hemoptysis - the pt remains on IV Heparin to determine if hemoptysis increases with anticoagulation. Right lower extremity Doppler is positive for DVT. A full hypercoag panel was ordered by the ER. Likely convert to a DOAC at discharge 2) HTN - cont Carvedilol 3) HLD - cont Crestor 4) Hypothyroidism - cont Synthroid 5) Regarding anemia and low protein -patient has previously been followed by oncology and hematology will continue to you to do so after discharge Full code - full-dose anticoagulation (2) Pulmonary emboli: (3) Hyperlipidemia: (4) HTN (hypertension): (5) Hypothyroidism: Admission and Anticipated Discharge Date Admission Date: June 29, 2021 Subjective Patient is having much less hemoptysis only very scant amounts and that is after coughing with deep inspirations he surprised to hear that he is DVT in his leg although he has no leg symptoms currently and his leg was bothering him a few months ago. Review of Systems Review of Systems: Mild distress and fatigue no headache, no visual changes no speech or swallowing issues no chest pain, pressure or palpitations no shortness of breath, occasionally blood-tinged productive cough no wheezes no abdominal pain, nausea or vomiting, diarrhea or constipation no dysuria, hematuria or frequency no focal joint pain or swelling no back pain, CVA tenderness or radicular pain no bruising, bleeding or rashes no focal signs of weakness or numbness or altered sensation no complaints of anxiety or depression.. Physical Exam Physical Exam: The patient appeared well nourished and normally developed. Vital signs as documented. Head exam is normocephalic atraumatic Neck is without JVD, thyromegaly, or carotid bruits. Lungs are clear to auscultation, no focal loss of breath sounds Cardiac exam, Rhythm is regular.. No murmurs, rubs or gallops. Abdominal exam reveals normal bowel sounds, soft non tender, no masses Extremities are nonedematous and both pedal pulses are present no significant edema or cords noted in his lower legs Neurologic exam is alert and oriented, no focal loss of strength or sensation Skin is without bruises or rashes Psychologically is without concerns for anxiety or depression Results & Data Results & Data ([facility]) Vital Signs (Past 12 Hours) Vital Signs Temp Pulse Pulse Resp BP BP Pulse Ox 06/30/21 16:58 80 06/30/21 14:46 97.9 F 70 16 128/79 98 06/30/21 11:03 97.9 F 62 18 132/78 96 06/30/21 08:50 70 06/30/21 07:21 98.1 F 66 17 143/79 H 96 PG Care Time/CCT Total # of Minutes Spent Total Time Spent with Patient: Total time spent is greater than 50% in coordination of care (as documented) at patient's floor/unit and/or counseling patient: Coding Level of Care Code 31673 Subseq Hosp Care Lvl 2 Diagnoses Muscle cramp, nocturnal R25.2 Pulmonary emboli I26.99 Hyperlipidemia E78.2 Hyperlipidemia type: mixed hyperlipidemia HTN (hypertension) I10 Hypertension type: essential hypertension Hypothyroidism E03.9 (1) Hyperlipidemia Hyperlipidemia type: mixed hyperlipidemia Qualified Code(s): E78.2 - Mixed hyperlipidemia (2) HTN (hypertension) Hypertension type: essential hypertension Qualified Code(s): I10 - Essential (primary) hypertension
[2021-06-30] MEDS: ZOLPIDEM TARTRATE 10 MG TAB PO PRN (21:07)
[2021-06-30] MEDS: rOPINIRole HCL 0.25 MG TABLET PO PRN (21:08)
[2021-07-01] MEDS ORDERED: LEVOTHYROXINE SODIUM 25 MCG TABLET PO SCH (06:30)
[2021-07-01 06:49] LABS: Hematocrit (blood only) 34.7 % (42-52); Hemoglobin 11.8 g/dL (14.0-18.0); Mean Corpuscular Hemoglobin 33.6 pg (25-34); Mean Corpuscular Volume 98.9 fL (80-100); RDW Coefficient of Variation 12.2 % (11.5-14.5); RDW Standard Deviation 43.8 fL (36.4-46.3); Red Blood Count 3.51 M/uL (4.7-6.1); White Blood Count 5.03 K/uL (4.8-10.8)
[2021-07-01 07:12] LABS: Mean Platelet Volume 9.2 fL (7.4-10.4); Platelet Count 99 K/uL (130-400)
[2021-07-01 07:14] LABS: Calcium 8.9 mg/dl (8.5-10.1); Creatinine Clr Calc Pharmacy 122.7 ml/min; Est GFR (African American) 121.5 ml/min; Est GFR (Non-African American) 104.8 ml/min; Potassium 3.9 mmol/L (3.5-5.1)
[2021-07-01] MEDS ORDERED: HEPARIN DRIP- STOP ORDER ONE (07:45)
[2021-07-01] MEDS: carvediloL 25 MG TAB PO SCH (08:38)
[2021-07-01] MEDS: ROSUVASTATIN CALCIUM 5 MG TAB PO SCH (08:38)
[2021-07-01] MEDS ORDERED: RIVAROXABAN 15 MG TAB PO SCH (09:00)
[2021-07-01 11:37] VITALS: TEMP 97.9
[2021-07-01 13:34] VITALS: BP 130/78; PULSE 68; O2SAT 98
--- NOTE | 2021-07-01 17:03 | Discharge Summary ---
Date of Service July 01, 2021 Admission HPI Per Admitting Provider 70 y/o m Hx RLS, GERD, HTN, HLD, hypothyroid. Pt developed exertional dyspnea starting 2 weeks ago. Over the past week, he has developed L lateral pleuritic CP and then a cough with occasional hemoptysis. He was instructed to attend the ER by his PCP. A CT of the chest demonstrated large bilateral pulmonary emboli and a pulmonary infarct at the right lung base. Labs are notable for hypoproteinemia and mild anemia. The pt has not exhibited tachypnea, tachycardia or hypoxia. The pt states that he has been having cramps in his calves for one month. He DCd his statin initially which he states did not help. He then restarted the statin and DCd chlorthalidone which did help. PMH: 1) HTN 2) HLD 3) Hypothyroid 4) GERD 5) RLS Surgical: 1) Tonsillectomy 2) Mohs Social: Does not smoke. Drinks socially. 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 Family: Father - [place], dementia Mother - CVA Principal Diagnosis Bilateral pulmonary embolisms Pulmonary infarction Right leg DVT Discharge Exam The patient appeared well Vital signs as documented. Lungs are clear to auscultation and appear unlabored Cardiac exam, Rhythm is regular.. No murmurs, rubs or gallops. Abdominal exam reveals normal bowel sounds, soft non tender, no masses Extremities right leg without external signs or symptoms of his DVT Neurologic exam is alert and oriented, no focal loss of strength or sensation Skin is without bruises or rashes Psychologically is without concerns for anxiety or depression. Discharge Data Allergies Allergy/AdvReac Type Severity Reaction Status Date / Time No Known Allergies Allergy Verified 06/29/21 14:38 Consultations 06/29/21 15:01 ED Decision to Admit Stat Ordered Studies 06/29/21 17:29 US venous doppler LE Routine Hospital Course (1) Pulmonary emboli: 70 y/o m Hx RLS, GERD, HTN, HLD, hypothyroid. Pt developed exertional dyspnea starting 2 weeks ago. Over the past week, he has developed L lateral pleuritic CP and then a cough with occasional hemoptysis. He was instructed to attend the ER by his PCP. A CT of the chest demonstrated large bilateral pulmonary emboli and a pulmonary infarct at the right lung base. Labs are notable for hypoproteinemia and mild anemia. The pt has not exhibited tachypnea, tachycardia or hypoxia. The pt states that he has been having cramps in his calves for one month. He DCd his statin initially which he states did not help. He then restarted the statin and DCd chlorthalidone which did help. 1) BL PEs with R pulmonary infarct and hemoptysis - the pt remains on IV Heparin to determine if hemoptysis increases with anticoagulation. Right lower extremity Doppler is positive for DVT. A full hypercoag panel was ordered by the ER. Likely convert to a DOAC at discharge 2) HTN - cont Carvedilol 3) HLD - cont Crestor 4) Hypothyroidism - cont Synthroid 5) Regarding anemia and low protein -patient has previously been followed by oncology and hematology will continue to you to do so after discharge Full code - (2) Hyperlipidemia: (3) HTN (hypertension): (4) Hypothyroidism: Total Time Total Time Spent Total Time Spent (In Minutes): It required less than 30 minutes to prepare this patient for discharge Discharge Plan Discharge Items Patient Disposition: Home - Self-Care Reason For Visit: HEMOPTYSIS Discharge Diagnosis: pulmonary embolism right leg deep venous thrombosis Activity: Resume your previous activity Non-emergency contact: Primary Care Provider Call non-emergency contact if: your symptoms worsen Follow-up/Referrals: Maycol Barroso MD [Primary Care Provider] - 07/17/21 3:15 pm (Please follow up with Dr. Barroso on Friday07/17/21 at 3:15 pm. Please arrive to the office at 3:00 pm for your appointment. If you are unable to keep this appointment, please call the office to reschedule at [phone].) Diet: Regular Addtl Attending Provider Instructions: Medication Instructions: Your condition is typically treated with an anticoagulant. Anticoagulants will thin your blood to help prevent new clots. * You should take her medication exactly as directed. * Never skip a dose. * Never take a double dose. If you miss a dose, take it as soon as you remember. Call your Primary Care doctor if you experience any of the following: * Swelling or Pain in your leg * Sudden, continuous pain deep in a muscle * Pain that worsens when you are active or when you stand still for a long time * Chest Pain * Sudden Shortness of Breath * Rapid or pounding heart beat * Fainting * Dizziness * Cough with blood or bloody sputum * Sweating more than normal * Bruises * Heavy or uncontrolled bleeding * Blood in your urine, stool or vomit * Black or tarry stools Caring for Your Self at Home: * Avoid sitting, standing or lying down for long periods without moving your legs and feet * When traveling by car, stop to get out and move around at least once every 3 hours * On long airplane, train or bus rides, get up and move around when possible * If you can't get up, wiggle your toes and tighten your calves to keep your blood moving Follow Up: It is important for you to keep your follow up appointments with your medical provider. Pending Studies at Discharge: Yes (blood work to determine if you have increased risk of repeat blood clots) Stand-Alone Forms: My [facility] [employer], Smoking Cessation Medications and DC Order Prescriptions: New Xarelto 15 mg Tablet 15 mg PO BID Qty: 42 RF: 0 Xarelto 20 mg tablet 20 mg PO DAILY Qty: 30 RF: 5 Continued levothyroxine 25 mcg tablet 25 mcg PO Q2D RF: 0 zolpidem 10 mg tablet 10 mg PO HS PRN (Reason: sleep) Qty: 90 RF: 1 meloxicam 15 mg tablet 7.5 mg PO DAILY Qty: 45 RF: 3 carvedilol 12.5 mg tablet 25 mg PO BID Qty: 360 RF: 3 rosuvastatin 5 mg tablet 5 mg PO DAILY Qty: 90 RF: 3 cholecalciferol (vitamin D3) 50 mcg (2,000 unit) capsule 50 mcg PO DAILY Qty: 30 RF: 0 calcium-vitamins B6-B12-FA Tablet 1 tab PO DAILY Qty: 30 RF: 0 omeprazole 20 mg capsule,delayed release(DR/EC) 20 mg PO DAILY PRN (Reason: Acid Reflux) RF: 0 hydrocortisone-acetic acid 1-2 % drops 3 drp otic (ear) TID PRN (Reason: Ear Pain) RF: 0 ropinirole 0.5 mg tablet 0.5 mg PO HS PRN (Reason: restless leg(s)) RF: 0 tadalafil [Cialis] 20 mg tablet 10 - 20 mg PO DAILY PRN (Reason: sexual activity) Qty: 10 RF: 2 doxycycline hyclate 50 mg capsule 50 mg PO DAILY PRN (Reason: Skin Irritation) RF: 0 multivitamin [Daily Multi-Vitamin] tablet 1 tab PO DAILY RF: 0 turmeric 400 mg capsule 400 mg PO DAILY RF: 0 diclofenac sodium 1 % gel 4 g topical QID PRN (Reason: Pain) Qty: 1 RF: 0 levothyroxine 50 mcg tablet 50 mcg PO Q2D Qty: 45 RF: 3 Discharge Orders: Discharge Order (Routine); Ordered 07/01/21 Ordered By: Moustapha Fraire Admission Data Admit Date/Time: 06/29/21 15:58 Attending Provider: Moustapha Fraire Admit Provider: Kevin Irizarry Primary Care Provider: Maycol Barroso Other Providers: Kevin Irizarry Other Interventions: Discharge Summary Assessment (RN) Last Done: 07/01/21 13:33 Coding Level of Care Code D/C DAY MANAGEMENT <30 MINS Diagnoses Pulmonary emboli I26.99 Hyperlipidemia E78.2 Hyperlipidemia type: mixed hyperlipidemia HTN (hypertension) I10 Hypertension type: essential hypertension Hypothyroidism E03.9
[2021-07-04 06:15] LABS: Anti Cardiolipin Ab IgG <2.0 GPL-U/mL; Anti Cardiolipin Ab IgM <2.0 MPL-U/mL; Anti-Thrombin III Activity 107 % normal (80-135); PTT LA Screen 45 sec (<=40)
[2021-07-05 14:06] LABS: B2 Glycoprotein IgG <2.0 U/mL (<20.0); B2 Glycoprotein IgM <2.0 U/mL (<20.0); Protein S Functional(Activity) 103 % (70-150)
[2021-07-06 12:45] LABS: Lupus Hex Phase (Rflxdonotord) Negative (Negative)
== END 2021-07-01 13:53 | disposition home or self-care (01) | DRG 176 ==
LOC: ED 12:51 → 2S 15:58 → SUATTDRO 15:58 → 2S 16:24